=== PATIENT | male | born 1995 | race Caucasian/White ===

== ENCOUNTER 2019-03-25 19:01 | Emergency (ER) | payer OTHER, SELFPAY ==
[2019-03-25 19:15] VITALS: BP 120/66; PULSE 68; RESP 16; TEMP 36.6; O2SAT 99
--- NOTE | 2019-03-25 19:15 | ED.EAR ---
HPI - Ear Problem General Chief complaint: Ear Stated complaint: ear pain Time Seen by Provider: 03/25/19 19:15 Source: patient and RN notes reviewed History of Present Illness HPI Narrative: Patient is a 23-year-old male that presents the urgent care with complaints of right ear pain, fullness, decreased hearing and yellow discharge. Patient states that it feels itchy . Patient states it started today when he woke up this morning. Patient states he has chronic ear infections and has had tubes placed multiple times. Patient has not used anything for his symptoms. Denies putting anything in the ear but does use Q-tips occasionally. No other acute complaints. No acute distress noted. Patient read the plan of care. Related Data Home Medications Medication Instructions Recorded Confirmed diclofenac sodium 75 mg PO BID PRN 03/25/19 03/25/19 Allergies Allergy/AdvReac Type Severity Reaction Status Date / Time No Known Allergies Allergy Verified 03/25/19 19:25 Review of Systems Review of Systems: Narrative: CONSTITUTIONAL: Denies fever, chills, or sweats. EYES: Denies visual changes, redness, or discharge. ENT: Reports of right otalgia with yellow discharge CARDIOVASCULAR: Denies chest pain, palpitations, or edema. RESPIRATORY: Denies cough or dyspnea. GASTROINTESTINAL: Denies abdominal pain, nausea, vomiting, or diarrhea. GENITOURINARY: Denies dysuria or hematuria. SKIN: Denies rash or itching. MUSCULOSKELETAL: Denies back pain, joint pain, or myalgia. NEUROLOGIC: Denies headache, numbness, or weakness. All other systems reviewed are negative, except as documented in HPI. PMFSH Comments At the time of my signature, I reviewed and agree with the nursing past medical, surgical, social, and family history. There is no relevant family history pertinent to the patient complaint. Exam Narrative: Exam Narrative: GENERAL: This is a well-nourished, well-developed patient, in no apparent distress. HEAD: normocephalic, atraumatic. EYES: PERRL. Sclera clear/white. Vision is grossly intact. EARS: External ears normal, auditory canals clear and without drainage, right erythemic injected TM with spontaneous rupture, left TMs normal without perforation. Hearing grossly intact. NOSE: External nose normal with no obvious nasal discharge THROAT: Mucous membranes moist, posterior pharynx clear. NECK: Neck supple CARDIOVASCULAR: Regular rate and rhythm without murmurs, gallops, or rubs. RESPIRATORY: Clear to auscultation. Breath sounds equal bilaterally. No wheezes, rales, or rhonchi. SKIN: warm, intact with no suspicious lesions or rash, good texture and turgor. NEURO: awake, alert, and oriented to person, place and time. There were no obvious focal neurologic abnormalities. EXTREMITIES: No clubbing, cyanosis, or edema. Course Vital Signs Vital signs: Vital Signs Temperature 97.8 F 03/25/19 19:15 Pulse Rate 68 03/25/19 19:15 Respiratory Rate 16 03/25/19 19:15 Blood Pressure 120/66 03/25/19 19:15 Pulse Oximetry 99 03/25/19 19:15 Temperature 97.8 F 03/25/19 19:15 Pulse Rate 68 03/25/19 19:15 Respiratory Rate 16 03/25/19 19:15 Blood Pressure 120/66 03/25/19 19:15 Pulse Oximetry 99 03/25/19 19:15 Reviewed Medical Decision Making MDM Narrative Medical decision making narrative: Advised the patient to complete oral antibiotic regimen as prescribed. Make sure to eat and drink with the medication. Do not put anything in the ear such as eardrops, peroxide, Q-tips. Use warm compress to the outside of the ear as well as Tylenol/ibuprofen as needed for pain. Follow-up with PCP within 2 to 5 days or for worsening symptoms or failure to improve. Differential Diagnosis Differential Diagnosis: Pneumonia, Allergic Rhinitis, Upper respiratory cough syndrome, Pharyngitis, Sinusitis, Bronchitis, otitis media, viral URI, Asthma/reactive airway disease, COPD, emphysema Vital Signs Vital Signs: Vital Signs T
== END 2019-03-25 19:30 | disposition home or self-care (01) ==
PROVIDERS: Emergency Provider Nurse Practitioner Family
DX: H66.91 Otitis media, unspecified, right ear (principal)
CPT/HCPCS: 99203; G0463

== ENCOUNTER 2020-07-31 17:41 | Emergency (ER) | payer OTHER, SELFPAY ==
[2020-07-31 17:45] VITALS: BP 113/82; PULSE 68; RESP 16; TEMP 36.9; O2SAT 100
--- NOTE | 2020-07-31 17:50 | ED.EAR ---
HPI - Ear Problem General Chief complaint: Ear Stated complaint: right ear infection Time Seen by Provider: 07/31/20 17:49 Source: patient and RN notes reviewed Mode of arrival: ambulatory Limitations: no limitations History of Present Illness HPI Narrative: 24-year-old male presents concern for right ear pain for several days. He reports chronic seasonal allergy issues that causes nasal congestion and rhinorrhea. Reports he takes Claritin regularly for allergies. Reports he went swimming over the weekend and since then has felt pressure, pain in the right ear. He denies drainage, fever, decreased hearing. MD Complaint: ear pain Related Data Allergies Allergy/AdvReac Type Severity Reaction Status Date / Time No Known Allergies Allergy Verified 07/31/20 17:56 Review of Systems Review of Systems: Narrative: CONSTITUTIONAL: Denies malaise, chills, sweats, or fever. EYES: Denies visual changes, redness, or discharge. ENT: Reports chronic rhinorrhea, congestion. Denies sinus pain or sore throat. Reports right ear pain CARDIOVASCULAR: Denies chest pain, palpitations, or edema. RESPIRATORY: Denies cough or dyspnea. SKIN: Denies rash or itching. MUSCULOSKELETAL: Denies myalgia. NEUROLOGIC: Denies headache. All systems reviewed & are unremarkable except as noted in HPI and below PMFSH Comments At time of signature, agree with nursing past medical, surgical, social and family history. There is no relevant family history pertinent to the presenting complaint Exam Narrative: Exam Narrative: GENERAL: Well-appearing, well-nourished, and in no acute distress. HEAD: Normocephalic EYES: PERRLA, conjunctivae clear ENT: Nares clear, turbinates erythematous, clear discharge. Mucous membranes moist. Left TM pearly meadows with dull light reflex, right TM erythematous and bulging; no tragal tenderness. Oropharynx not erythematous without lesions. Tonsils not enlarged and without exudate, no drooling, no hoarseness, no trismus, uvula midline. NECK: Supple. No lymphadenopathy CHEST: No respiratory distress, speaks in full sentences. HEART: Regular rate and rhythm. No murmur heard. SKIN: Warm, dry, no rash. NEURO: Alert and oriented x3. PSYCH: Normal mood and affect Course Course Emergency Course: Patient is aware of diagnosis, understands and agrees to treatment plan. Anticipatory guidance given. Patient agrees to follow-up as directed and is aware of reasons to seek care at the emergency department. Portions of this record may have been created with voice recognition software Vital Signs Vital signs: Vital Signs Temperature 98.5 F 07/31/20 17:45 Pulse Rate 68 07/31/20 17:45 Respiratory Rate 16 07/31/20 17:45 Blood Pressure 113/82 07/31/20 17:45 Pulse Oximetry 100 07/31/20 17:45 Temperature 98.5 F 07/31/20 17:45 Pulse Rate 68 07/31/20 17:45 Respiratory Rate 16 07/31/20 17:45 Blood Pressure 113/82 07/31/20 17:45 Pulse Oximetry 100 07/31/20 17:45 Reviewed. Medical Decision Making MDM Narrative Medical decision making narrative: Differential diagnosis considered: Nesbitt virus, strep pharyngitis, allergic rhinitis, upper respiratory tract infection, sinusitis, rhinosinusitis, nasopharyngitis. viral pharyngitis, otitis media, otitis externa, pneumonia, bronchitis, viral cough syndrome, viral syndrome, and influenza. Exam findings show no acute concerns or changes; patient is non-toxic appearing and is in no distress. Patient is appropriate for outpatient treatment and follow-up. Vital Signs Vital Signs: Vital Signs Temperature 98.5 F 07/31/20 17:45 Pulse Rate 07/31/20 17:45 Respiratory Rate 07/31/20 17:45 Blood Pressure 113/82 07/31/20 17:45 Pulse Oximetry 100 07/31/20 17:45 Temperature 98.5 F 07/31/20 17:45 Pulse Rate 68 07/31/20 17:45 Respiratory Rate 07/31/20 17:45 Blood Pressure 113/82 07/31/20 17:45 Pulse Oximetry 100 07/31/20 17:45 Criti
== END 2020-07-31 18:00 | disposition home or self-care (01) ==
PROVIDERS: Emergency Provider Nurse Practitioner
DX: H66.001 Acute suppurative otitis media without spontaneous rupture of ear drum, right ear (principal); K21.9 Gastro-esophageal reflux disease without esophagitis
CPT/HCPCS: 99213; G0463

== ENCOUNTER 2020-12-26 15:07 | Emergency (ER) | payer OTHER, SELFPAY ==
[2020-12-26 15:14] VITALS: BP 129/67; PULSE 66; RESP 16; TEMP 36.9; O2SAT 99
--- NOTE | 2020-12-26 15:28 | ED.SKABFB ---
HPI - Skin/Abscess/Foreign Bdy General Chief complaint: Skin/Abscess/Foreign Body Stated complaint: Skin Problem Time Seen by Provider: 12/26/20 15:28 Source: patient and RN notes reviewed History of Present Illness HPI narrative: Patient is a 25-year-old male who presents the urgent care with complaints of a itchy rash to the thenar eminence of the left hand. Patient states is been there for approximately 2 weeks and he has been using hydrocortisone cream. 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 No other acute complaints. No acute distress noted. Patient aware of the plan of care. Some parts of this dictation were generated by voice recognition software and may contain typographical and/or grammatical inaccuracies. Related Data Home Medications Medication Instructions Recorded Confirmed loratadine mg 12/26/20 omeprazole 12/26/20 Allergies Allergy/AdvReac Type Severity Reaction Status Date / Time No Known Allergies Allergy Verified 07/31/20 17:56 Review of Systems Review of Systems: CONSTITUTIONAL: Denies fever, chills, or sweats. EYES: Denies visual changes, redness, or discharge. ENT: Denies rhinorrhea, congestion, sore throat, or otalgia. CARDIOVASCULAR: Denies chest pain, palpitations, or edema. RESPIRATORY: Denies cough or dyspnea. GASTROINTESTINAL: Denies abdominal pain, nausea, vomiting, or diarrhea. GENITOURINARY: Denies dysuria or hematuria. SKIN: Reports of an itchy rash to the left hand MUSCULOSKELETAL: Denies back pain, joint pain, or myalgia. NEUROLOGIC: Denies headache, numbness, or weakness. All other systems reviewed are negative, except as documented in HPI. PMFSH Comments At the time of my signature, I reviewed and agree with the nursing past medical, surgical, social, and family history. There is no relevant family history pertinent to the patient complaint. Exam Narrative: GENERAL: This is a well-nourished, well-developed patient, in no apparent distress. HEAD: normocephalic, atraumatic. EYES: PERRL. Sclera clear/white. Vision is grossly intact. EARS: External ears normal NOSE: External nose normal with no obvious nasal discharge, nares without redness, no rhinorrhea. THROAT: Mucous membranes moist NECK: Neck supple CARDIOVASCULAR: Regular rate and rhythm without murmurs, gallops, or rubs. RESPIRATORY: Clear to auscultation. Breath sounds equal bilaterally. No wheezes, rales, or rhonchi. SKIN: Very mild nonerythemic papular dermatitis noted to the thenar eminence of the left hand NEURO: awake, alert, and oriented to person, place and time. There were no obvious focal neurologic abnormalities. EXTREMITIES: No clubbing, cyanosis, or edema. Course Vital Signs Vital signs: Vital Signs Temperature 98.5 F 12/26/20 15:14 Pulse Rate 66 12/26/20 15:14 Respiratory Rate 16 12/26/20 15:14 Blood Pressure 129/67 12/26/20 15:14 Pulse Oximetry 99 12/26/20 15:14 Temperature 98.5 F 12/26/20 15:14 Pulse Rate 66 12/26/20 15:14 Respiratory Rate 16 12/26/20 15:14 Blood Pressure 129/67 12/26/20 15:14 Pulse Oximetry 99 12/26/20 15:14 Reviewed MDM - Skin/Abscess/Foreign Bdy MDM Narrative Medical decision making narrative: Advised the patient to use the prescription cream to the affected area as directed. May also use an [id number] antihistamine such as Claritin/Zyrtec/Benadryl as needed for the itch. Follow-up with your PCP within 2 to 5 days or for worsening symptoms or failure to improve. Differential Diagnosis Differential diagnosis: Likely abscess of skin or subcutaneous tissue, herpes zoster, allergic reaction to drug, cellulitis, eczema and insect bites Critical Care Time Critical Care Time Critical Care Time: No Discharge Plan Discharge Clinical Impression: Dermatitis Patient Disposition: Home, Self-Care Condition: Stable Instructions: Antibiotic Form, Dermatitis
== END 2020-12-26 15:58 | disposition home or self-care (01) ==
PROVIDERS: Emergency Provider Nurse Practitioner Family
DX: L30.9 Dermatitis, unspecified (principal); K21.9 Gastro-esophageal reflux disease without esophagitis
CPT/HCPCS: 99213; G0463

== ENCOUNTER 2021-05-19 09:49 | Emergency (ER) | payer OTHER, SELFPAY ==
[2021-05-19 09:54] VITALS: BP 125/69; PULSE 68; RESP 14; TEMP 36.9; O2SAT 100
--- NOTE | 2021-05-19 10:07 | ED.ABDPAIN ---
HPI - Abdominal Pain General Chief Complaint: Nausea/Vomiting/Diarrhea Stated Complaint: Abdominal Pain Time Seen by Provider: 05/19/21 10:32 Source: patient and RN notes reviewed Mode of arrival: ambulatory Limitations: no limitations History of Present Illness HPI narrative: 25-year-old male presents concern for diarrhea and abdominal discomfort after returning from [place]. He reports several diarrhea stools a day. He reports abdominal discomfort while he is having a bowel movement. He denies any current abdominal pain, denies vomiting. Denies body aches, chills, fever. He reports he took an antidiarrheal medicine on 2 different occasions. MD elicited complaint: abdominal pain Related Data Home Medications Medication Instructions Recorded Confirmed loratadine 10 mg PO DAILY 12/26/20 05/19/21 omeprazole 20 mg PO DAILY 12/26/20 05/19/21 Allergies Allergy/AdvReac Type Severity Reaction Status Date / Time No Known Allergies Allergy Verified 05/19/21 09:59 Review of Systems Review of Systems: CONSTITUTIONAL: Denies malaise, chills, sweats, or fever. EYES: Denies visual changes, redness, or discharge. ENT: Denies rhinorrhea, congestion, sinus pain, otalgia or sore throat. CARDIOVASCULAR: Denies chest pain, palpitations, or edema. RESPIRATORY: Denies cough or dyspnea. GASTROINTESTINAL: Denies abdominal pain, vomiting. Reports nausea, diarrhea. Denies bloody, or mucous stools. MUSCULOSKELETAL: Denies myalgia. All systems reviewed & are unremarkable except as noted in HPI and below PMFSH Comments At time of signature, agree with nursing past medical, surgical, social and family history. There is no relevant family history pertinent to the presenting complaint Exam Narrative: GENERAL: Well-appearing, well-nourished, and in no acute distress. HEAD: Normocephalic, atraumatic. EYES: PERRLA, conjunctivae clear, and EOMI. ENT: Nares clear, turbinates pink, no rhinorrhea or epistaxis. Mucous membranes moist. Oropharynx without edema, erythema, or lesions. Tonsils not enlarged and without exudate. NECK: Supple. No lymphadenopathy CHEST: Speaks in full sentences. No respiratory distress. HEART: Regular rate and rhythm. ABDOMEN: Soft, flat, nondistended. No guarding, rebound tenderness, or rigid. No pulsatilla masses. Bowel sounds present in all four quadrants. No organomegaly. Negative Arango?s sign. No periumbilical tenderness. No Supra public tenderness or distension. Good femoral pulses bilaterally. No hernia noted. No scars or surface trauma. SKIN: Warm, dry, no rash. NEURO: Alert and oriented x3. PSYCH: Normal mood and affect Course Course Emergency Course: Patient is aware of diagnosis, understands and agrees to treatment plan. Anticipatory guidance given. Patient agrees to follow-up as directed and is aware of reasons to seek care at the emergency department. Portions of this record may have been created with voice recognition software Level of Care: Express Care Visit Vital Signs Vital signs: Vital Signs Temperature 98.4 F 05/19/21 09:54 Pulse Rate 68 05/19/21 09:54 Respiratory Rate 14 05/19/21 09:54 Blood Pressure 125/69 05/19/21 09:54 Pulse Oximetry 100 05/19/21 09:54 Temperature 98.4 F 05/19/21 09:54 Pulse Rate 68 05/19/21 09:54 Respiratory Rate 14 05/19/21 09:54 Blood Pressure 125/69 05/19/21 09:54 Pulse Oximetry 100 05/19/21 09:54 Reviewed. MDM - Abdominal Pain MDM Narrative Medical decision making narrative: No evidence of pancreatitis, AAA, cholecystitis, choledocholithiasis, cholangitis, mesenteric ischemia, small bowel obstruction, diverticulitis, colitis, appendicitis, or pelvic etiology such as testicular torsion. Patient has no history of peptic ulcer, H. pylori, chronic aspirin NSAID or corticosteroid use, chronic alcohol use, no history of inflammatory bowel disease, no history of active abdominal infection or malignancy. Patient has no history of herni
[2021-05-19 10:09] VITALS: BP 125/69; PULSE 68; RESP 14; TEMP 36.9; O2SAT 100
== END 2021-05-19 10:45 | disposition home or self-care (01) ==
PROVIDERS: Emergency Provider Nurse Practitioner
DX: A09 Infectious gastroenteritis and colitis, unspecified (principal); K21.9 Gastro-esophageal reflux disease without esophagitis; Z86.16 Personal history of COVID-19
CPT/HCPCS: 99213; G0463

== ENCOUNTER 2022-06-17 12:14 | Emergency (ER) | payer OTHER, SELFPAY ==
[2022-06-17 12:19] VITALS: BP 129/81; PULSE 98; RESP 16; TEMP 37; O2SAT 98
--- NOTE | 2022-06-17 12:39 | ED.URI ---
HPI - URI/Sore Throat General Chief Complaint: Upper Respiratory Infection Stated Complaint: ear / nose / throat Source: patient and RN notes reviewed History of Present Illness HPI Narrative: 26-year-old male presents to urgent care with complaints of sore throat, congestion, left ear pain, body aches, and chills. Patient denies any known fevers, vomiting, chest pain, or shortness of breath. Some parts of this dictation were generated by voice recognition software and may contain typographical and/or grammatical inaccuracies. Related Data Home Medications Medication Instructions Recorded Confirmed loratadine 10 mg tablet 10 mg PO DAILY 12/26/20 06/17/22 famotidine 20 mg tablet 20 mg PO DAILY 06/17/22 06/17/22 Allergies Allergy/AdvReac Type Severity Reaction Status Date / Time No Known Allergies Allergy Verified 06/17/22 12:40 Review of Systems Review of Systems: Pertinent positives and pertinent negatives per HPI. PMFSH Comments At the time of my signature, I reviewed and agree with the nursing past medical, surgical, social, and family history. There is no relevant family history pertinent to the patient complaint. Exam Narrative: GENERAL: This is a well-nourished, well-developed patient, in no apparent distress. HEAD: normocephalic, atraumatic. EYES: Sclera clear/white. Vision is grossly intact. EARS: External ears normal, auditory canals clear and without drainage. left TM is erythemic and bulging. Right TM noted effusion NOSE: External nose normal with no obvious nasal discharge, nares without redness, no rhinorrhea. THROAT: Mucous membranes moist, posterior pharynx erythemic. NECK: Neck supple, non-tender without lymphadenopathy, masses or thyromegaly. CARDIOVASCULAR: Regular rate and rhythm without murmurs, gallops, or rubs. RESPIRATORY: Clear to auscultation. Breath sounds equal bilaterally. No wheezes, rales, or rhonchi. SKIN: warm, intact with no suspicious lesions or rash, good texture and turgor. NEURO: awake, alert, and oriented to person, place and time. There were no obvious focal neurologic abnormalities. Course Course Level of Care: Express Care Visit Vital Signs Vital signs: Vital Signs Temperature 98.6 F 06/17/22 12:19 Pulse Rate 98 06/17/22 12:19 Respiratory Rate 16 06/17/22 12:19 Blood Pressure 129/81 06/17/22 12:19 Pulse Oximetry 98 06/17/22 12:19 Oxygen Delivery Room Air 06/17/22 12:19 Temperature 98.6 F 06/17/22 12:19 Pulse Rate 98 06/17/22 12:19 Respiratory Rate 16 06/17/22 12:19 Blood Pressure 129/81 06/17/22 12:19 Pulse Oximetry 98 06/17/22 12:19 Oxygen Delivery Room Air 06/17/22 12:19 Reviewed MDM - URI/Sore Throat MDM Narrative Medical decision making narrative: Rapid strep is negative in the office; however we will send to the lab for confirmation; there is a small percentage chance that it can come back positive; if it is, we will call you in 2-3days; and your prescription will be call in to your pharmacy. However, there is NO indication for antibiotic at this time. -Increase your fluids and Vitamin C. -Oral rinses such as: Salt water gargles and/or may use topical anesthetic (eg. Chloraseptic spray) or lozenges to relieve dryness or throat pain. -Take tylenol and ibuprofen as needed for pain and fever as directed. -Frequent hand washing or hand butt sawyer is one of the best ways to prevent spread of infection. -Follow up with primary care provider in 2-3 days if condition is not improving or seek ER visit if your child starts breathing fast/has trouble breathing, is not drinking enough fluids, muffle voice, difficulty opening the mouth or will not wake up or will not interact with you. Take antibiotics as directed. May given ibuprofen and/or Tylenol as needed for pain and/or fever. Follow up with primary care provider in 7-10 days to have ear rechecked. Differential Diagnosis Differential diagnosis: Likely upper
== END 2022-06-17 12:47 | disposition home or self-care (01) ==
PROVIDERS: Emergency Provider Nurse Practitioner Family
DX: J02.9 Acute pharyngitis, unspecified (principal); H66.92 Otitis media, unspecified, left ear; K21.9 Gastro-esophageal reflux disease without esophagitis
CPT/HCPCS: 87081; 87880; 99213; G0463